=== PATIENT | female | born 1955 | race Caucasian/White ===

== ENCOUNTER 2018-12-06 10:39 | Day surgery (SDC) | payer OTHER ==
[~2018-12-06] VITALS: Ht 152.4 cm; Wt 66.6 kg
[~2018-12-06 10:39] MED LIST: ALBIPROI INH; ALPR.5 PO; AMIT25 PO; AMLO5 PO; ASPI81EC PO; ATOR10; AZIT250 PO; Aspir 8181 MG PO; Atrovent Inha12.9 GM NEB; BUPR150T2 PO; CEFD300 PO; COMBIVENT RESPIM4 GM INH; CYCL10 PO; ERGO400 PO; FAMO20 PO; FURO20 PO; FURO40 PO; GAVILAX17 GM PO; HYDACE5 PO; IPRAOI INH; Ipratr-Albuterol3 ML IH; K-Dur 20 meq T20 MEQ PO; LISHYD2012; LISHYD2025 PO; LISI20 PO; LO-DOSE ASPIRIN81 MG; MORP30ER PO; MULTI VITAMIN1 EACH PO; NAPR500 PO; ONDA4 PO; ONDA4ODT MM; POTCHL20ER PO; PRED10 PO; PROM25 PO; RANI150; RXHYDACE PO; SERT100; SERT100 PO; SIMV10 PO; SIMV40; SIMV80 PO; TRAZ100; TRAZ100 PO; VENL75ER PO; VICODIN 5-3001 EACH PO; Zofran Odt4 MG SL
--- NOTE | 2018-12-06 11:36 | NUR ---
12/06/18 1136 Charlee Hernandez DECREASED LUNG SOUNDS ON RIGHT, COARSE ON LEFT. PT. IS A SMOKER.
--- NOTE | 2018-12-06 11:51 | NUR ---
12/06/18 1151 Mary Herrera UPON START OF COLONOSCOPY MD MUELLER SAW SKIN BREAKDOWN ON BOTH SIDES OF UPPER BUTTOCKS. BOTH AREAS ARE QUARTER TO FIFTY CENT IN SIZE WITH SLOUGHING OF THE SKIN BUT NO BLEEDING NOTED. WILL DISCUSS WITH PT POST PROCEDURE.
== END 2018-12-06 12:58 | disposition home or self-care (01) ==
LOC: ORSCSDS 10:39
PROVIDERS: Internal Medicine Gastroenterology
PROC: 0DBK8ZX Excision of Ascending Colon, Via Natural or Artificial Opening Endoscopic, Diagnostic (ICD-10-PCS; principal; 2018-12-06 12:00)
PROC: 0DBL8ZX Excision of Transverse Colon, Via Natural or Artificial Opening Endoscopic, Diagnostic (ICD-10-PCS; principal; 2018-12-06 12:00)
DX: Z12.11 Encounter for screening for malignant neoplasm of colon (principal); D12.2 Benign neoplasm of ascending colon; D12.3 Benign neoplasm of transverse colon; J44.9 Chronic obstructive pulmonary disease, unspecified; K21.9 Gastro-esophageal reflux disease without esophagitis; F17.210 Nicotine dependence, cigarettes, uncomplicated; F31.9 Bipolar disorder, unspecified; F20.9 Schizophrenia, unspecified; Z79.899 Other long term (current) drug therapy; Z79.82 Long term (current) use of aspirin
CPT/HCPCS: 88305; J2704; J7120

== ENCOUNTER 2021-12-04 06:05 | Day surgery (SDC) | payer OTHER ==
[~2021-12-04] VITALS: Ht 149.9 cm; Wt 78.9 kg
[~2021-12-04 06:05] MED LIST changes: +AMIT10; +ESCI10; +FAMO10; +FLUTICASONE-SA1 EAC1 INH; +FURO20; +Prednisone10 MG PO; +SPIR25 PO; +TRAZ50; +VENL150ER; +ZESTRIL40 M1 PO; +Zocor20 MG
[2021-12-04] MEDS ORDERED: OMEP20ER (06:26)
[2021-12-04] MEDS ORDERED: ALEN70 (06:26)
[2021-12-04] MEDS ORDERED: ANORO ELLIPTA1 EACH (06:27)
[2021-12-04] MEDS ORDERED: COMBIVENT RESPIM4 G1 (06:27)
[2021-12-04] MEDS ORDERED: FURO40 PO (06:29)
[2021-12-04] MEDS ORDERED: VENL75ER PO (06:29)
[2021-12-04] MEDS ORDERED: ZOCOR20 MG PO (06:30)
== END 2021-12-04 08:22 | disposition home or self-care (01) ==
LOC: ORSCSDS 06:05
PROVIDERS: Ophthalmology
PROC: 08RJ3JZ Replacement of Right Lens with Synthetic Substitute, Percutaneous Approach (ICD-10-PCS; principal; 2021-12-04 07:30)
DX: H25.13 Age-related nuclear cataract, bilateral (principal); I10 Essential (primary) hypertension; F32.A Depression, unspecified; K21.9 Gastro-esophageal reflux disease without esophagitis; B19.20 Unspecified viral hepatitis C without hepatic coma; E66.9 Obesity, unspecified; Z68.35 Body mass index [BMI] 35.0-35.9, adult; F17.210 Nicotine dependence, cigarettes, uncomplicated; Z79.82 Long term (current) use of aspirin; Z79.899 Other long term (current) drug therapy
CPT/HCPCS: J2001; J2250; J3010; J3301; J7040; V2632

== ENCOUNTER 2021-12-25 09:56 | Day surgery (SDC) | payer OTHER ==
[~2021-12-25] VITALS: Ht 152.4 cm; Wt 80.2 kg
[~2021-12-25 09:56] MED LIST changes: +ALEN70; +ANORO ELLIPTA1 EACH; +COMBIVENT RESPIM4 G1; +LINZESS290 MCG PO; +OMEP20ER; -TRAZ50; +TRAZ50 PO; +ZOCOR20 MG PO
--- NOTE | 2021-12-25 10:16 | NUR ---
12/25/21 1016 Chip Garcia CALL LIGHT WITHIN REACH. TETRACAINE AT 1009 AND PLEDGETT AT 1011 IN THE LEFT EYE.
--- NOTE | 2021-12-25 11:03 | NUR ---
12/25/21 1103 ALFONSO BEY DURING DISCHARGE INSTRUCTIONS, PT PLAYING SOLITAR ON HER PHONE. 2ND EYE. COPIES OF ALL DC INSTRUCTIONS GIVEN TO PT
== END 2021-12-25 11:04 | disposition home or self-care (01) ==
LOC: ORSCSDS 09:56
PROVIDERS: Ophthalmology
PROC: 08RK3JZ Replacement of Left Lens with Synthetic Substitute, Percutaneous Approach (ICD-10-PCS; principal; 2021-12-25 11:00)
DX: H25.12 Age-related nuclear cataract, left eye (principal); I10 Essential (primary) hypertension; J44.9 Chronic obstructive pulmonary disease, unspecified; K21.9 Gastro-esophageal reflux disease without esophagitis; F17.210 Nicotine dependence, cigarettes, uncomplicated; E66.9 Obesity, unspecified; Z68.34 Body mass index [BMI] 34.0-34.9, adult; Z79.82 Long term (current) use of aspirin; Z79.899 Other long term (current) drug therapy
CPT/HCPCS: J2001; J2250; J3010; J3301; J7040; V2632

== ENCOUNTER 2021-12-29 16:53 | Emergency (ER) | payer OTHER ==
[~2021-12-29] VITALS: Ht 152.4 cm; Wt 79.8 kg
[2021-12-29 17:32] LABS: BASOPHILS ABSOLUTE AUTO 0.07 K/mm3 (0.00-0.23); BASOPHILS PERCENT AUTO 1 % (0-2); EOSINOPHILS ABSOLUTE AUTO 0.11 K/mm3 (0.00-0.68); EOSINOPHILS PERCENT AUTO 1 % (0-6); Hematocrit 43.9 % (33.0-51.0); Hemoglobin 14.4 g/dL (11.5-16.0); IMMATURE GRAN PERCENT AUTO 1 % (0-1); LYMPHOCYTES ABSOLUTE AUTO 2.17 K/mm3 (0.84-5.20); LYMPHOCYTES PERCENT AUTO 20 % (21-46); MONOCYTES ABSOLUTE AUTO 0.87 K/mm3 (0.16-1.47); MONOCYTES PERCENT AUTO 8 % (4-13); Mean Corpuscular HGB 26.5 pg (26.0-34.0); Mean Corpuscular HGB Conc 32.8 g/dL (31.5-36.5); Mean Corpuscular Volume 81 fL (80-100); Mean Platelet Volume 8.2 fL (9.1-12.4); NEUTROPHILS ABSOLUTE AUTO 7.57 K/mm3 (1.96-9.15); NEUTROPHILS PERCENT AUTO 70 % (41-73); Platelet Count 341 K/mm3 (150-400); RDW Coefficient Variation 14.8 % (11.7-14.2); RDW Standard Deviation 43.8 fL (35.1-46.3); Red Blood Cell Count 5.43 M/mm3 (3.80-5.20); White Blood Cell Count 10.89 K/mm3 (4.00-11.30)
[2021-12-29 17:57] LABS: Albumin, Blood 3.5 g/dL (3.4-5.0); Albumin/Globulin Ratio 0.9 (0.8-1.8); Bilirubin, Total 0.2 mg/dL (0.1-1.0); Bun/Creatinine Ratio 19.9 (12.0-20.0); Creatinine, Blood 0.6 mg/dL (0.40-1.00); Globulin, Blood 3.8 g/dL (2.2-4.0); Potassium, Blood 4.2 mmol/L (3.5-5.5); Total Protein, Blood 7.3 g/dL (6.4-8.2)
[2021-12-29] MEDS ORDERED: Norco 5-325 Ta1 EACH PO (20:04)
[2021-12-29] MEDS ORDERED: Prednisone20 MG PO (20:04)
== END 2021-12-29 20:27 | disposition home or self-care (01) ==
LOC: ER 16:53
PROVIDERS: Emergency Medicine
DX: J44.9 Chronic obstructive pulmonary disease, unspecified (principal); R07.89 Other chest pain; I10 Essential (primary) hypertension; F32.A Depression, unspecified; F17.210 Nicotine dependence, cigarettes, uncomplicated; Z79.899 Other long term (current) drug therapy; Z79.82 Long term (current) use of aspirin; Z88.8 Allergy status to other drugs, medicaments and biological substances; Z79.52 Long term (current) use of systemic steroids
CPT/HCPCS: 36415; 71045; 80053; 83880; 84484; 85025; 94640; 94664; A9270; J1885; J7512

== ENCOUNTER 2022-01-14 19:28 | Emergency (ER) | payer OTHER ==
[~2022-01-14] VITALS: Ht 152.4 cm; Wt 81.2 kg
[~2022-01-14 19:28] MED LIST changes: +Norco 5-325 Ta1 EACH PO; +Prednisone20 MG PO
[2022-01-15 02:21] LABS: Influenza A, PCR NEGATIVE (NEGATIVE); Influenza B, PCR NEGATIVE (NEGATIVE); Resp Syncytial Virus, PCR NEGATIVE (NEGATIVE); SARS-Cov-2 (COVID-19) PCR, MMC NEGATIVE (NEGATIVE)
== END 2022-01-15 06:35 | disposition short-term general hospital (02) ==
LOC: ER 19:28
PROVIDERS: Emergency Medicine
DX: T18.128A Food in esophagus causing other injury, initial encounter (principal); I10 Essential (primary) hypertension; J44.9 Chronic obstructive pulmonary disease, unspecified; K21.9 Gastro-esophageal reflux disease without esophagitis; E78.5 Hyperlipidemia, unspecified; F17.210 Nicotine dependence, cigarettes, uncomplicated; X58.XXXA Exposure to other specified factors, initial encounter; Z79.82 Long term (current) use of aspirin; Z79.899 Other long term (current) drug therapy; Z20.822 Contact with and (suspected) exposure to COVID-19
CPT/HCPCS: 0241U; 93005; 93010; A9270; J1610; J2060

== ENCOUNTER → 2025-06-13 | Outpatient (CLI) | payer OTHER ==
[2025-06-13 16:23] LABS: Osmolality, Urine 400 mos/kg (15-1400)
[2025-06-13 21:29] LABS: Sodium, Urine, Random 121 mmol/L (20-110)
== END ==
LOC: LAB 13:24 → LAB SHORT 13:24
PROVIDERS: Physician Assistant
DX: E87.1 Hypo-osmolality and hyponatremia (principal)
CPT/HCPCS: 83935; 84300